=== PATIENT | male | born 1990 | race Two or more races ===

== ENCOUNTER 2022-02-19 16:16 | Emergency (ER) | payer SELFPAY ==
[~2022-02-19] VITALS: Ht 170.2 cm; Wt 61.2 kg
[2022-02-19] MEDS ORDERED: IBUPROFEN 600 MG TABLET PO ONE (17:00)
[2022-02-19] MEDS ORDERED: SULFAMETH/TRIMETH 800/160 MG 1 UDTAB TABLET PO ONE (17:00)
[2022-02-19] MEDS ORDERED: CEPHALEXIN MONOHYDRATE 500 MG CAPSULE PO ONE ×2 (17:00→18:12)
[2022-02-19] MEDS ORDERED: MIDAZOLAM HCL 2 MG/2ML VIAL ONE (17:43)
[2022-02-19] MEDS ORDERED: LIDOCAINE VISCOUS 2% UD 15 ML UDC MM ONE (18:00)
[2022-02-19] MEDS ORDERED: MIDAZOLAM HCL 2 MG/2ML VIAL IM ONE (18:00)
[2022-02-19] MEDS ORDERED: IBUPROFEN 600 MG TABLET ONE (18:12)
[2022-02-19] MEDS ORDERED: SULFAMETH/TRIMETH 800/160 MG 1 UDTAB TABLET ONE (18:13)
[2022-02-19] MEDS ORDERED: TDAP [DIPH/PERTUSSIS/TET] 0.5 ML VIAL IM ONE ×2 (18:24→18:30)
[2022-02-19] MEDS ORDERED: KETOROLAC TROMETHAMINE 15 MG/ML VIAL ONE (18:24)
[2022-02-19] MEDS ORDERED: IV NS 0.9% 1,000 ML BAG IV ONE (18:30)
[2022-02-19] MEDS ORDERED: VANCOMYCIN 1 GM in IV D5W 250 ML IV ONE (18:30)
[2022-02-19] MEDS ORDERED: CEFEPIME 1 GM in IV D5W 50 ML IV ONE (18:30)
[2022-02-19] MEDS ORDERED: KETOROLAC TROMETHAMINE INJ 30 MG/ML VIAL IV ONE (18:30)
--- NOTE | 2022-02-19 19:20 | NUR ---
LAC #20G S/L PATENT AND INTACT. VSS. [employer] AT PT'S BEDSIDE
[2022-02-19] MEDS ORDERED: VANCOMYCIN 1 GM VIAL ONE (19:32)
--- NOTE | 2022-02-19 19:41 | NUR ---
[facility] CALLED FOR HIGHER LEVEL OF CARE. SPOKE WITH LAURA. FACESHEET FAXED TO [phone]
[2022-02-19 19:51] LABS: BASOPHILS % (AUTO) 0.3 % (0.0-2.0); EOSINOPHILS % (AUTO) 0.1 % (0.0-6.0); HEMATOCRIT 39 % (39-51); HEMOGLOBIN 12.6 g/dL (13.5-17.5); LYMPHOCYTES # (AUTO) 2.6 K/uL (0.8-4.8); LYMPHOCYTES % (AUTO) 26.3 % (20.0-44.0); MEAN CORPUSCULAR HGB CONC 33 g/dl (31.0-36.0); MEAN CORPUSCULAR VOLUME 87 fL (80-96); MONOCYTES # (AUTO) 0.8 K/uL (0.1-1.30); MONOCYTES % (AUTO) 8.7 % (2.0-12.0); NEUTROPHILS # (AUTO) 6.3 K/uL (1.8-8.9); NEUTROPHILS % (AUTO) 64.6 % (43.0-81.0); PLATELET COUNT (AUTO) 305 K/uL (150-450); RED BLOOD CELL COUNT(AUTO) 4.49 MIL/uL (4.5-6.0); WHITE BLOOD COUNT (AUTO) 9.7 K/uL (4.3-11.0)
[2022-02-19 19:55] LABS: CALCIUM, SERUM 9.5 mg/dL (8.5-10.1); CARBON DIOXIDE 28 mmol/L (21-32); CHLORIDE 98 mmol/L (98-107); GLUCOSE 91 mg/dL (74-106); POTASSIUM 4.2 mmol/L (3.5-5.1); SODIUM SERUM 135 mmol/L (136-145); UREA NITROGEN, BLOOD 19 mg/dL (7-18)
--- NOTE | 2022-02-19 20:01 | NUR ---
CALL FROM LAURA RANKIN. PT ACCEPTED TO [facility] BY DR GOODWIN. # FOR REPORT [phone]. [facility] #[id number].
[2022-02-19 20:05] LABS: ALANINE AMINOTRANSFERASE 14 U/L (12-78); ALBUMIN 3.8 g/dL (3.4-5.0); ALKALINE PHOSPHATASE 89 U/L (46-116); ASPARTATE AMINOTRANSFERASE 21 U/L (15-37); BILIRUBIN,DIRECT 0.2 mg/dL (0.0-0.2); BILIRUBIN,TOTAL 0.7 mg/dL (0.2-1.0); TOTAL PROTEIN, SERUM 8.9 g/dL (6.4-8.2)
--- NOTE | 2022-02-19 20:05 | NUR ---
[facility] CALLED FOR TRANSPORT. ETA 90-120 MINUTES.
--- NOTE | 2022-02-19 20:57 | NUR ---
REPORT GIVEN TO [id number] FIELDS FROM [facility]
[2022-02-19 20:58] VITALS: BP 111/60
--- NOTE | 2022-02-19 21:54 | NUR ---
PT TRANSFERED TO [facility] VIA PRIVATE AMBULANCE WITH [employer]. MARIA FERNANDA
== END 2022-02-19 21:54 | disposition short-term general hospital (02) ==
LOC: ER 16:18
DX: S60.442A External constriction of right middle finger, initial encounter (principal); W49.04XA Ring or other jewelry causing external constriction, initial encounter; Y92.89 Other specified places as the place of occurrence of the external cause; S61.222A Laceration with foreign body of right middle finger without damage to nail, initial encounter; L03.011 Cellulitis of right finger; F15.10 Other stimulant abuse, uncomplicated; F12.90 Cannabis use, unspecified, uncomplicated; F20.9 Schizophrenia, unspecified; E86.0 Dehydration; Z23 Encounter for immunization; Z91.199 Patient's noncompliance with other medical treatment and regimen due to unspecified reason; Z20.822 Contact with and (suspected) exposure to COVID-19
CPT/HCPCS: 99291; 96365; 71045; 96375; 87426; 90471; 90715; 73140; 84145; 85025; 80048; 87040 ×2; 83605; 80076; 36415; 84484; 85730; 96372; J3370 ×2; J7060; J7030; J2250; J0692; J1885; C9803